=== PATIENT | male | born 1940 | race Caucasian/White ===

== ENCOUNTER 2016-08-17 12:15 | Inpatient (IN) | payer OTHER ==
[2016-08-17] MEDS ORDERED: NS 1,000 ML IV ONE (12:27)
[2016-08-17 13:17] LABS: ABSOLUTE IMMATURE GRANULOCYTES 0.22 10^3/uL (0.00-0.10); ADD DIFF? NO; ADD MORPH? NO; ADD SCAN? NO; ATYPICAL LYMPHOCYTE FLAG 0 (0-99); FRAGMENT RBC FLAG 0 (0-99); HEMATOCRIT 38.3 % (40.0-51.0); HEMOGLOBIN 13.4 g/dL (13.7-17.5); LEFT SHIFT FLG 0 (0-99); LIPEMIA HEMOLYSIS FLAG 90 (0-99); MEAN CELL HEMOGLOBIN 32.3 pg (27.9-34.1); MEAN CELL VOLUME 92.3 fL (81.5-99.8); MEAN PLATELET VOLUME 11.6 fL (8.7-11.7); PLATELET CLUMPS FLAG 0 (0-99); PLATELET COUNT 101 10^3/uL (150-400); RED BLOOD CELL COUNT 4.15 10^6/uL (4.40-6.38); RED CELL DISTRIBUTION WIDTH 13.5 % (11.5-15.2)
[2016-08-17 13:33] LABS: COLOR AMBER; LEUKOCYTE ESTERASE,URINE NEGATIVE (NEGATIVE); MUCUS 2+ /lpf (NONE-1+)
[2016-08-17] MEDS ORDERED: METOCLOPRAMIDE 10 MG/2 ML VIAL IVP ONE (13:36)
--- NOTE | 2016-08-17 13:38 | EDPHY ---
H & P Stated Complaint: hiccups Time Seen by Provider: 08/17/16 12:27 HPI/ROS: CHIEF COMPLAINT: Intractable hiccups HISTORY OF PRESENT ILLNESS: The patient presents to the ED with complaints of intractable hiccups for the past 3 days. The patient is status post prostate embolization for treatment of BPH. The patient did have a fever noted several days ago. His primary care provider started him on Cipro. The patient presents to the ED today secondary to ongoing severe hiccups. He denies fever, shaking chills or acutely worsening pain. REVIEW OF SYSTEMS: A comprehensive 10 point review of systems is otherwise negative aside from elements mentioned in the history of present illness. Source: Patient, Family - Personal History Current Tetanus/Diphtheria Vaccine: Yes Current Tetanus Diphtheria and Acellular Pertussis (TDAP): Yes Tetanus Vaccine Date: < 10 years - Medical/Surgical History Hx Asthma: No Hx Chronic Respiratory Disease: No Hx Diabetes: No Hx Cardiac Disease: No Hx Renal Disease: No Hx Cirrhosis: No Hx Alcoholism: No Hx HIV/AIDS: No Hx Splenectomy or Spleen Trauma: No Other PMH: hernia repair - Social History Smoking Status: Never smoked - Physical Exam Exam: General Appearance: Alert, no distress Eyes: Pupils equal and round no pallor or injection ENT, Mouth: Mucous membranes moist Respiratory: There are no retractions, lungs are clear to auscultation Cardiovascular: Regular rate and rhythm Gastrointestinal: Abdomen is soft and nontender, no masses, bowel sounds normal Neurological: A&O, normal motor function, normal sensory exam, normal cranial nerves Skin: Warm and dry, no rashes Musculoskeletal: Neck is supple nontender Extremities: symmetrical, full range of motion Constitutional: Initial Vital Signs Temperature (C) 36.9 C 08/17/16 12:19 Heart Rate 81 08/17/16 12:19 Respiratory Rate 14 08/17/16 12:19 Blood Pressure 129/67 H 08/17/16 12:19 O2 Sat (%) 94 08/17/16 12:19 Allergies/Adverse Reactions: Sulfa (Sulfonamide Antibiotics) [Sulfa(Sulfonamide Antibiotics)] Allergy ( Unknown, Verified 10/04/11 17:56) Home Medications: Medication Instructions Recorded Ciprofloxacin [Cipro] 500 mg PO BID 08/17/16 Diazepam [Valium 10 MG (*)] 10 mg PO DAILY PRN 08/17/16 Gi Cocktail 10 ml PO DAILY PRN 08/17/16 Herbals/Supplements -Info Only 1 ea PO DAILY 08/17/16 Phenazopyridine HCl [Pyridium] 200 mg PO TID 08/17/16 oxyCODONE/APAP 5/325 [Percocet 1 - 2 tab PO Q4H PRN 08/17/16 5/325 (*)] Medical Decision Making - Diagnostics EKG Interpretation: CT A/P: Negative for intraabominal abscess, likely hemorrhage noted in the prostate bed. CT chest: Nodule noted, no evidence of intrathoracic or subdiaphragmatic process such as abscess or empyema. Imaging: Discussed imaging studies w/ banking assistant Radiologist ED Course/Re-evaluation: The patient had an IV established. He presents to the ED with a chief complaint of intractable hiccups. The patient has had reported history of fever in the setting of a recent prostate procedure. The patient did have blood cultures x2 obtained in the ED. The patient was noted to have leukocytosis. The patient received IV Reglan for his hiccups. The patient was seen in consultation by Dr. Burton. The patient will be admitted to the hospital in a setting of his leukocytosis and reported fever. The patient will undergo CT scan of the chest abdomen pelvis for further evaluation of the possibility of a postoperative infection causing his symptoms today. Differential Diagnosis: Differential diagnosis considered includes bacteremia, intractable hiccups, metabolic abnormality, medication side effect, postoperative abscess, phrenic nerve irritation. - Data Points Laboratory Results: Laboratory Results 08/17/16 13:05 08/17/16 13:05 08/17/16 08/17/16 08/17/16 13:05 13:05 13:05 WBC 21.32 10^3/uL H 10^3/uL (3.80-9.50) RBC 4.15 10^6/uL L 10^6/uL (4.40-6.38) Hgb 13.4 g/dL L g/dL (13.7-17.5) Hct 38.3 % L % (40.0-51.0) MCV 92.3 fL fL (81.5-99.8) MCH 32.3 pg pg (27.9-34.1) MCHC 35.0 g/dL g/dL (32.4-36.7) RDW 13.5 % % (11.5-15.2) Plt Count 101 10^3/uL L 10^3/uL (150-400) MPV 11.6 fL fL (8.7-11.7) Neut % (Auto) 85.4 % H % (39.3-74.2) Lymph % (Auto) 6.1 % L % (15.0-45.0) [place] % (Auto) 7.2 % % (4.5-13.0) Eos % (Auto) 0.1 % L % (0.6-7.6) Baso % (Auto) 0.2 % L % (0.3-1.7) Nucleat RBC Rel Count 0.0 % % (0.0-0.2) Absolute Neuts (auto) 18.18 10^3/uL H 10^3/uL (1.70-6.50) Absolute Lymphs (auto) 1.31 10^3/uL 10^3/uL (1.00-3.00) Absolute Monos (auto) 1.54 10^3/uL H 10^3/uL (0.30-0.80) Absolute Eos (auto) 0.02 10^3/uL L 10^3/uL (0.03-0.40) Absolute Basos (auto) 0.05 10^3/uL 10^3/uL (0.02-0.10) Absolute Nucleated RBC 0.00 10^3/uL 10^3/uL (0-0.01) Immature Gran % 1.0 % % (0.0-1.1) Immature Gran # 0.22 10^3/uL H 10^3/uL (0.00-0.10) Sodium 143 mEq/L mEq/L (134-144) Potassium 3.9 mEq/L mEq/L (3.5-5.2) Chloride 108 mEq/L mEq/L (97-110) Carbon Dioxide 24 mEq/l mEq/l (22-31) Anion Gap 11 mEq/L mEq/L (8-16) BUN 24 mg/dL H mg/dL (7-23) Creatinine 1.1 mg/dL mg/dL (0.7-1.3) Estimated GFR > 60 Glucose 94 mg/dL mg/dL (70-100) Calcium 9.0 mg/dL mg/dL (8.5-10.4) Total Bilirubin 1.5 mg/dL H mg/dL (0.1-1.4) Conjugated Bilirubin 0.4 mg/dL mg/dL (0.0-0.5) Unconjugated Bilirubin 1.1 mg/dL mg/dL (0.0-1.1) AST 45 IU/L IU/L (17-59) ALT 27 IU/L IU/L (21-72) Alkaline Phosphatase 58 IU/L IU/L (38-126) Total Protein 6.1 g/dL L g/dL (6.3-8.2) Albumin 3.7 g/dL g/dL (3.5-5.0) Urine Color KANDACE Urine Appearance CLEAR Urine pH 5.0 (5.0-7.5) Ur Specific [place] 1.029 (1.002-1.030) Urine Protein 1+ H (NEGATIVE) Urine Ketones NEGATIVE (NEGATIVE) Urine Blood NEGATIVE (NEGATIVE) Urine Nitrate TNP Urine Bilirubin NEGATIVE (NEGATIVE) Urine Urobilinogen 4.0 EU H EU (0.2-1.0) Ur Leukocyte Esterase NEGATIVE (NEGATIVE) Urine RBC 5-10 /hpf H /hpf (0-3) Urine WBC 10-15 /hpf H /hpf (0-3) Ur Epithelial Cells TRACE /lpf /lpf (NONE-1+) Hyaline Casts 5-15 /lpf /lpf (0-1) Urine Mucus 2+ /lpf H /lpf (NONE-1+) Urine Glucose NEGATIVE (NEGATIVE) Medications Given: Discontinued Medications Sodium Chloride (Ns) 1,000 mls @ 0 mls/hr IV ONCE ONE PRN Reason: Wide Open Stop: 08/17/16 12:28 Last Admin: 08/17/16 13:18 Dose: 1,000 mls Chlorpromazine HCl 25 mg/ (Sodium Chloride) 51 mls @ 62.4 mls/hr IV ONCE ONE Stop: 08/17/16 13:55 Last Admin: 08/17/16 18:31 Dose: Not Given Ceftriaxone Sodium/Dextrose (Rocephin 1 Gm (Premix)) 50 mls @ 100 mls/hr IV EDNOW ONE PRN Reason: Protocol Stop: 08/17/16 15:19 Last Admin: 08/17/16 14:52 Dose: 50 mls Chlorpromazine HCl 50 mg/ (Sodium Chloride) 52 mls @ 62.4 mls/hr IV Q8HRS ONE PRN Reason: Protocol Stop: 08/17/16 15:41 Last Admin: 08/17/16 18:31 Dose: Not Given Metoclopramide HCl (Reglan Injection) 10 mg IVP EDNOW ONE Stop: 08/17/16 13:37 Last Admin: 08/17/16 14:04 Dose: 10 mg Departure - Departure Disposition: [facility] Acute Clinical Impression: Hiccups, Leukocytosis Condition: Good
[2016-08-17 13:42] LABS: ALANINE AMINOTRANSFERASE 27 IU/L (21-72); ALBUMIN 3.7 g/dL (3.5-5.0); ALKALINE PHOSPHATASE 58 IU/L (38-126); ANION GAP 11 mEq/L (8-16); ASPARTATE AMINOTRANSFERASE 45 IU/L (17-59); BILIRUBIN,TOTAL 1.5 mg/dL (0.1-1.4); BILIRUBIN-CONJUGATED 0.4 mg/dL (0.0-0.5); BILIRUBIN-UNCONJUGATED 1.1 mg/dL (0.0-1.1); CARBON DIOXIDE 24 mEq/l (22-31); CHLORIDE 108 mEq/L (97-110); CREATININE 1.1 mg/dL (0.7-1.3); GLOMERULAR FILTRATION RATE > 60; GLUCOSE 94 mg/dL (70-100); POTASSIUM 3.9 mEq/L (3.5-5.2); SODIUM 143 mEq/L (134-144); TOTAL PROTEIN 6.1 g/dL (6.3-8.2)
[2016-08-17] MEDS ORDERED: chlorproMAZINE HCL 50 MG in NS 50 ML IV ONE (14:52)
[2016-08-17] MEDS ORDERED: IOPAMIDOL (ISOVUE-300) 100 ML BTL ONE (15:02)
[2016-08-17] MEDS ORDERED: chlorproMAZINE HCL 25 MG in NS 25 ML IV PRN (15:16)
--- NOTE | 2016-08-17 17:21 | CPEKG ---
Heart Rate: 66 RR Interval: 909 P-R Interval: 148 QRSD Interval: 100 QT Interval: 376 QTC Interval: 394 P [place]: 67 QRS [place]: 50 T Wave [place]: -34 EKG Severity - ABNORMAL ECG - EKG Impression: SINUS RHYTHM EKG Impression: NONSPECIFIC T ABNORMALITIES, INFERIOR LEADS EKG Impression: MINIMAL ST ELEVATION, ANTERIOR LEADS Electronically Signed By: Hung Carmona 18-Aug-2016 10:59:31
[2016-08-17] MEDS ORDERED: METOCLOPRAMIDE 10 MG/2 ML VIAL IVP PRN (19:19)
[2016-08-17] MEDS: clonazePAM 1 MG TAB PO PRN (19:25)
[2016-08-17] MEDS: CIPROFLOXACIN 500 MG TAB PO SCH (19:25)
[2016-08-17] MEDS ORDERED: clonazePAM 1 MG TAB PO SCH (21:00)
--- NOTE | 2016-08-17 22:59 | GHP ---
[f rep st] HISTORY AND PHYSICAL DATE OF ADMISSION: 08/17/2016 REASON FOR ADMISSION: Intractable hiccups. Dramatically elevated white count. Possible prostate a bscess. HISTORY: The patient is a 75-year-old male, who had a prostatic embolization performed of this week, this was 4 days prior to admission. Three days prior to admission, he developed intracta ble hiccups, and has been having significant trouble sleeping ever since. He has also been running a low-grade fever to 100.5. He denies chills or sweats. The hiccups had gotten to the point that h e basically could not sleep, and was having some shortness of breath. PAST MEDICAL HISTORY: Significant for benign prostatic hypertrophy, with an elevated PSA, increased postvoid urine residual. He is otherwise very healthy. One day prior to admission, he had a urine checked, and was empirically placed on Cipro and Pyridium for the burning. He also had been placed on prednisone. However, he stopped that because it appeared the prednisone made his hiccups worse. He was seen in the emergency room where he was evaluated, and found have a white count over 21,000 with a left shift. Blood cultures were obtained, and he is being admitted for further evaluation a nd treatment. CT of the chest, abdomen and pelvis revealed nothing around the diaphragm to explain his hiccups, nothing in the mediastinum to explain his hiccups. However, he does have what appears to be a fluid collection in his prostate gland, which is a concern for possible abscess. CURRENT MEDICATIONS: Flomax 0.4 mg daily, lidocaine 2% solution mixed with Maalox to try to relieve his symptoms, chlorpromazine 25 mg, Cipro 500 mg twice daily, Pyridium 200 mg 3 times a day, and Ox yContin. He was using OxyContin for postprocedural pain. PAST SURGICAL HISTORY: He has no significant past surgical history. SOCIAL HISTORY: He does not smoke. ALLERGIES: He is allergic to sulfa. REVIEW OF SYSTEMS: He denies chills or headaches. He has had a low-grade fever. He denies cough, shortness breath or wheezing. However, he does have some trouble catching his breath because of the frequency of hiccups. The hiccups have prevented him from sleeping. He has urinary burning, which is relieved with Pyridium. He has some diminished stream size and some hesitancy. PHYSICAL EXAM: VITAL SIGNS: Blood pressure was 135/76, pulse 75, regular, respiration rate was 16, oxygen saturation 97% on room air. Temperature is 37.5. GENERAL APPEARANCE: He appears to be royce ewhat ill, having not slept for the last 2 or 3 nights. He is alert, oriented, but somewhat frustra bruce. HEENT: Pupils are equal and reactive. Throat was normal. LUNGS: Clear to auscultation. HE ART: Regular rate and rhythm. Bowel sounds are present. ABDOMEN: Nondistended. EXTREMITIES: He has no peripheral edema. He is hiccupping with some great frequency during the examination. He mo ves all extremities well. PSYCHIATRIC: He is alert, oriented, and appropriate. He does, however, have decreased hearing, and forgot to bring in his hearing aids. IMPRESSION: Status post prostatic embolization for benign prostatic hyperplasia, with complications of intractable hiccups, and possible prostatic abscess versus necrotic tissue from the embolization . PLAN: We will obtain blood cultures. We will empirically place on Cipro and ceftriaxone pending result, based on his very elevated white blood cell count. We will recheck the white count in the morning. We will treat the hiccups with a number of medications, including Reglan, Klonopin, oxyco done, and Thorazine, as the previous were not effective. We will follow closely. /[id number]/MODL
[2016-08-18] MEDS: oxyCODONE IR 5 MG TAB PO PRN ×2 (01:20→19:16)
[2016-08-18 10:15] LABS: SEDIMENTATION RATE 40 MM/HR (0-20)
[2016-08-18] MEDS: CIPROFLOXACIN 500 MG TAB PO SCH (11:18)
[2016-08-18 13:15] LABS: % IMMATURE GRANULYOCYTES 1.6 % (0.0-1.1); ABSOLUTE IMMATURE GRANULOCYTES 0.24 10^3/uL (0.00-0.10); ADD DIFF? NO; ADD MORPH? NO; ADD SCAN? NO; ATYPICAL LYMPHOCYTE FLAG 0 (0-99); FRAGMENT RBC FLAG 20 (0-99); HEMATOCRIT 34.8 % (40.0-51.0); HEMOGLOBIN 11.9 g/dL (13.7-17.5); LEFT SHIFT FLG 0 (0-99); LIPEMIA HEMOLYSIS FLAG 90 (0-99); MEAN CELL HEMOGLOBIN 32.3 pg (27.9-34.1); MEAN CELL HEMOGLOBIN CONCENTR. 34.2 g/dL (32.4-36.7); MEAN CELL VOLUME 94.6 fL (81.5-99.8); PLATELET CLUMPS FLAG 10 (0-99); PLATELET COUNT 105 10^3/uL (150-400); RED BLOOD CELL COUNT 3.68 10^6/uL (4.40-6.38); RED CELL DISTRIBUTION WIDTH 13.5 % (11.5-15.2)
[2016-08-18] MEDS ORDERED: [UNRECOGNIZED DRUG - OTHER] PO PRN (15:37)
[2016-08-18] MEDS ORDERED: [UNRECOGNIZED DRUG - MIXTURE] PO PRN (15:42)
[2016-08-18] MEDS ORDERED: GI COCKTAIL PO PRN (18:20)
[2016-08-18] MEDS ORDERED: MAG HYDROX/AL HYDROX/SIMETH 30 ML UDCUP PO PRN (18:24)
[2016-08-18] MEDS ORDERED: HYOSCYAMINE SULFATE 0.125 MG TAB PO PRN (18:24)
[2016-08-18] MEDS ORDERED: LIDOCAINE 2% VISCOUS 15 ML UDCUP PO PRN (18:25)
[2016-08-18] MEDS ORDERED: KETOROLAC 30 MG/1 ML SDV IVP ONE (18:56)
[2016-08-18] MEDS ORDERED: PHENAZOPYRIDINE HCL 200 MG TAB PO SCH ×2 (19:00)
--- NOTE | 2016-08-18 19:03 | SOAPPROG ---
SOAP Progress Note Assessment/Plan: Assessment: Continues with intractible hiccups. Uncertain etiology. Although Dr. 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 The family has concerns about side effects of cipro. Plan: will stop cipro and pyrideum. Will place on protonic and Toradol follow symptoms 08/18/16 19:02 Subjective: Continues with hiccups. feeling sick. Some episodes of shortness of breath. Objective: Vital Signs Temp Pulse Resp BP Pulse Ox 38.4 C H 66 18 144/66 H 93 08/18/16 16:00 08/18/16 16:00 08/18/16 16:00 08/18/16 16:00 08/18/16 16:00 Laboratory Results 08/18/16 08:07 08/17/16 08/18/16 08/19/16 05:59 05:59 05:59 Intake Total 1685 15 Balance 1685 15 Temp to 38.4. SED and CRP elevated. Discussed symptoms. He is having no need for the Pyridium. I spoke with Dr. Naidu who did the embolization of the prostate. He thinks this is post embolization side effects and doubts infection. ICD10 Worksheet Patient Problems: Problems Problem Status Onset Hiccups Acute Leukocytosis Acute
[2016-08-18] MEDS: PANTOPRAZOLE SODIUM 40 MG TAB PO SCH (19:16)
[2016-08-19] MEDS: oxyCODONE IR 5 MG TAB PO PRN ×3 (01:00→22:06)
[2016-08-19] MEDS: KETOROLAC 15 MG/1 ML SDV IVP SCH ×7 (01:03→23:48)
[2016-08-19 04:48] LABS: ABSOLUTE IMMATURE GRANULOCYTES 0.11 10^3/uL (0.00-0.10); ADD DIFF? NO; ADD MORPH? NO; ADD SCAN? NO; ATYPICAL LYMPHOCYTE FLAG 0 (0-99); FRAGMENT RBC FLAG 0 (0-99); HEMATOCRIT 33.6 % (40.0-51.0); HEMOGLOBIN 11.6 g/dL (13.7-17.5); LEFT SHIFT FLG 0 (0-99); LIPEMIA HEMOLYSIS FLAG 90 (0-99); MEAN CELL HEMOGLOBIN 32.4 pg (27.9-34.1); MEAN CELL HEMOGLOBIN CONCENTR. 34.5 g/dL (32.4-36.7); MEAN CELL VOLUME 93.9 fL (81.5-99.8); MEAN PLATELET VOLUME 10.8 fL (8.7-11.7); PLATELET CLUMPS FLAG 0 (0-99); PLATELET COUNT 102 10^3/uL (150-400); RED BLOOD CELL COUNT 3.58 10^6/uL (4.40-6.38); RED CELL DISTRIBUTION WIDTH 13.2 % (11.5-15.2)
[2016-08-19 05:03] LABS: ALBUMIN 2.6 g/dL (3.5-5.0); CHLORIDE 110 mEq/L (97-110); GLUCOSE 89 mg/dL (70-100); POTASSIUM 3.9 mEq/L (3.5-5.2); SODIUM 141 mEq/L (134-144)
[2016-08-19 05:48] LABS: ALANINE AMINOTRANSFERASE 32 IU/L (21-72); ALKALINE PHOSPHATASE 43 IU/L (38-126); ANION GAP 8 mEq/L (8-16); ASPARTATE AMINOTRANSFERASE 30 IU/L (17-59); CALCIUM 7.8 mg/dL (8.5-10.4); CARBON DIOXIDE 23 mEq/l (22-31); CREATININE 0.9 mg/dL (0.7-1.3); GLOMERULAR FILTRATION RATE > 60; TOTAL PROTEIN 4.9 g/dL (6.3-8.2)
[2016-08-19 06:00] LABS: C-REACTIVE PROTEIN 182.6 mg/L (<10.0)
[2016-08-19] MEDS ORDERED: KETOROLAC 30 MG/1 ML SDV IVP ONE (09:02)
[2016-08-19] MEDS: PANTOPRAZOLE SODIUM 40 MG TAB PO SCH ×2 (10:00→20:20)
[2016-08-19] MEDS: clonazePAM 1 MG TAB PO PRN (22:44)
--- NOTE | 2016-08-19 23:38 | SOAPPROG ---
SOAP Progress Note Assessment/Plan: Assessment: Continues with intractible hiccups. Uncertain etiology. Although Dr. 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 Doing better in general despite the persistent hiccups. Plan: Continue current treatment. Consider intranasal ketamine if symptoms not improving by AM. 08/18/16 19:02 08/19/16 23:37 Subjective: feeing some better yet still with intractable hiccups. Appetite poor. Was able to sleep some last night. Objective: Vital Signs Temp Pulse Resp BP Pulse Ox 36.6 C 55 L 18 146/65 H 95 08/19/16 22:02 08/19/16 22:02 08/19/16 22:02 08/19/16 22:02 08/19/16 22:02 Laboratory Results 08/19/16 04:39 08/19/16 04:39 08/18/16 08/19/16 08/20/16 05:59 05:59 05:59 Intake Total 1685 415 Balance 1685 415 Lungs clear to asc. COR RRR. Lab improved with decreased wbc. Inflammatory markers elevated. VS stable some sleep last night. ICD10 Worksheet Patient Problems: Problems Problem Status Onset Hiccups Acute Leukocytosis Acute
[2016-08-20] MEDS: oxyCODONE IR 5 MG TAB PO PRN ×2 (05:03→21:14)
[2016-08-20 05:08] LABS: % IMMATURE GRANULYOCYTES 1.4 % (0.0-1.1); ABSOLUTE IMMATURE GRANULOCYTES 0.11 10^3/uL (0.00-0.10); ADD DIFF? NO; ADD MORPH? NO; ADD SCAN? NO; ATYPICAL LYMPHOCYTE FLAG 0 (0-99); FRAGMENT RBC FLAG 0 (0-99); HEMATOCRIT 35.2 % (40.0-51.0); HEMOGLOBIN 11.9 g/dL (13.7-17.5); LEFT SHIFT FLG 10 (0-99); LIPEMIA HEMOLYSIS FLAG 90 (0-99); MEAN CELL HEMOGLOBIN 31.5 pg (27.9-34.1); MEAN CELL HEMOGLOBIN CONCENTR. 33.8 g/dL (32.4-36.7); MEAN CELL VOLUME 93.1 fL (81.5-99.8); MEAN PLATELET VOLUME 10.5 fL (8.7-11.7); PLATELET CLUMPS FLAG 10 (0-99); PLATELET COUNT 136 10^3/uL (150-400); RED BLOOD CELL COUNT 3.78 10^6/uL (4.40-6.38)
[2016-08-20] MEDS: KETOROLAC 15 MG/1 ML SDV IVP SCH ×3 (05:33→19:44)
[2016-08-20 05:51] LABS: ALANINE AMINOTRANSFERASE 30 IU/L (21-72); ALBUMIN 2.6 g/dL (3.5-5.0); ALKALINE PHOSPHATASE 43 IU/L (38-126); ANION GAP 8 mEq/L (8-16); ASPARTATE AMINOTRANSFERASE 30 IU/L (17-59); BILIRUBIN,TOTAL 0.7 mg/dL (0.1-1.4); CALCIUM 8.1 mg/dL (8.5-10.4); CARBON DIOXIDE 24 mEq/l (22-31); CHLORIDE 109 mEq/L (97-110); CREATININE 0.8 mg/dL (0.7-1.3); GLOMERULAR FILTRATION RATE > 60; GLUCOSE 76 mg/dL (70-100); POTASSIUM 4.1 mEq/L (3.5-5.2); SODIUM 141 mEq/L (134-144); TOTAL PROTEIN 4.8 g/dL (6.3-8.2)
[2016-08-20] MEDS: PANTOPRAZOLE SODIUM 40 MG TAB PO SCH ×2 (10:27→21:54)
[2016-08-20] MEDS: clonazePAM 1 MG TAB PO PRN (10:36)
[2016-08-21] MEDS: KETOROLAC 15 MG/1 ML SDV IVP SCH ×3 (00:03→11:23)
[2016-08-21] MEDS: oxyCODONE IR 5 MG TAB PO PRN (02:54)
[2016-08-21 08:01] VITALS: BP 130/74; PULSE 48; RESP 15; TEMP 98.5; O2SAT 91
[2016-08-21] MEDS ORDERED: DIAZEPAM 5 MG TAB PO PRN (10:47)
--- NOTE | 2016-08-21 10:50 | SOAPPROG ---
SOAP Progress Note Assessment/Plan: Assessment: Continues with intractible hiccups. Uncertain etiology. Although Dr. 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 Doing better in general despite the persistent hiccups. Plan: DC to home. Follow up next week. sooner if hiccups worsen. 08/18/16 19:02 08/19/16 23:37 08/21/16 10:49 Subjective: doing some better. Able to sleep last night. HIccups began shortly after awakening. Objective: Vital Signs Temp Pulse Resp BP Pulse Ox 36.9 C 48 L 15 130/74 H 91 L 08/21/16 07:57 08/21/16 07:57 08/21/16 07:57 08/21/16 07:57 08/21/16 07:57 Laboratory Results 08/20/16 04:54 08/20/16 04:54 vital signs normal. Hiccups improved. good sleep last night. ICD10 Worksheet Patient Problems: Problems Problem Status Onset Hiccups Acute Leukocytosis Acute
[2016-08-21] MEDS: PANTOPRAZOLE SODIUM 40 MG TAB PO SCH (11:31)
[2016-08-21] MEDS ORDERED: NAPROXEN SODIUM 220 MG TAB PO SCH (21:00)
== END 2016-08-21 12:30 | disposition home or self-care (01) | DRG 204 ==
LOC: F3E 16:15
PROVIDERS: ADMIT Internal Medicine; ATTEND Internal Medicine
DX: R06.6 Hiccough (principal); D72.829 Elevated white blood cell count, unspecified; R50.9 Fever, unspecified; Z98.890 Other specified postprocedural states
CPT/HCPCS: 96374; J0696; J1885; J2765; J3230; Q9967

== ENCOUNTER → 2016-12-04 | Outpatient (CLI) | payer OTHER ==
[~2016-12-04] MED LIST: GADOBUTROL 10 ML VIAL IVP ONE
== END ==
LOC: FIMAGING 07:45
PROVIDERS: ATTEND Urology
DX: C61 Malignant neoplasm of prostate (principal)
CPT/HCPCS: 72197; 76377; A9585